=== PATIENT | male | born 1985 | race Caucasian/White ===

== ENCOUNTER 2019-11-10 12:24 | Inpatient (IN) | payer OTHER ==
[~2019-11-10] VITALS: Ht 172.7 cm; Wt 61.7 kg
[2019-11-10 12:30] VITALS: BP 143/97
--- NOTE | 2019-11-10 12:35 | NUR ---
Patient ambulated to bed 9. RN evaluating patient at bedside.
[2019-11-10] MEDS ORDERED: ASPIRIN 325 MG TAB PO ONE (12:40)
[2019-11-10] MEDS ORDERED: PROMETHAZINE 25 MG/ML VIAL IM ONE (13:00)
[2019-11-10] MEDS ORDERED: LORazepam 2 MG/ML VIAL IVP ONE (13:00)
[2019-11-10] MEDS ORDERED: NACL 0.9% 2,000 ML IV SCH (13:03)
[2019-11-10 13:11] LABS: BASOPHILS % (AUTO) 0.7 % (0.0-2.0); EOSINOPHILS # (AUTO) 0.1 K/uL (0-0.4); EOSINOPHILS % (AUTO) 0.8 % (0.0-4.0); HEMATOCRIT 47.6 % (36-52); HEMOGLOBIN 16.5 g/dL (12.0-18.0); LYMPHOCYTES # (AUTO) 1.2 K/uL (2.0-11.5); LYMPHOCYTES % (AUTO) 19.7 % (20.5-51.1); MEAN CORPUSCULAR HEMOGLOBIN 35 pg (27-31); MEAN CORPUSCULAR HGB CONC 35 g/dL (33-37); MEAN CORPUSCULAR VOLUME 100.7 fL (80-94); MONOCYTES # (AUTO) 0.4 K/uL (0.8-1.0); MONOCYTES % (AUTO) 6.9 % (1.7-9.3); NEUTROPHILS # (AUTO) 4.5 K/uL (1.8-7.7); NEUTROPHILS % (AUTO) 71.9 % (42.2-75.2); PLATELET COUNT (AUTO) 355 K/uL (140-450); RED BLOOD CELL COUNT(AUTO) 4.72 MIL/uL (4.20-6.10); RED CELL DISTRIBUTION WIDTH 13.3 % (11.6-13.7); WHITE BLOOD COUNT (AUTO) 6.2 K/uL (4.8-10.8)
--- NOTE | 2019-11-10 13:18 | NUR ---
Dr. Causey is evaluating the patient at bedside.
[2019-11-10 13:32] LABS: PROTHROMBIN TIME 9.9 secs (10.8-13.4)
[2019-11-10 13:44] LABS: ANION GAP 23.6 (8-16); CARBON DIOXIDE 23.1 mmol/L (21-32); POTASSIUM 3.7 mmol/L (3.5-5.1)
[2019-11-10] MEDS ORDERED: LIB5 PO (13:55)
--- NOTE | 2019-11-10 13:56 | NUR ---
CHECKED ON PT. AWAKE AND ALERT. ABLE TO COMMUNICTAE WELL. PROVIDED BLANKET , URINAL AT THE BEDISDE. INFORMED HIM TO USE THE URINAL , NEEDS URINE WORK UP. PT STATES NEEDS SOME TIME. NO ACUTE DISTRESS NOTED. RR EVEN AND NON-LABORED. WILL CONTINUE TO MONTIOR PT.
[2019-11-10 13:58] LABS: ALBUMIN 4.2 g/dL (3.4-5.0); TOTAL BILIRUBIN 1.1 mg/dL (0.0-1.0)
[2019-11-10 14:02] LABS: D-DIMER < 100 ng/ml (0-400)
[2019-11-10 14:29] LABS: C-REACTIVE PROTEIN QUANT < 0.2 mg/dL (0.0-0.9)
[2019-11-10 14:32] LABS: APPEARANCE,URINE CLEAR (CLEAR); BILIRUBIN,URINE 1+ (NEGATIVE); BLOOD, URINE NEGATIVE (NEGATIVE); LEUKOCYTE ESTERASE ,URINE NEGATIVE (NEGATIVE); NITRITE, URINE NEGATIVE (NEGATIVE); PH,URINE 6.5 (5.0-9.0); UGLUCOSE NEGATIVE (NEGATIVE)
[2019-11-10 14:34] LABS: BARBITURATE, URINE NEG. ng/ml (NEG <=200); BENZODIAZEPINE, URINE POS. ng/mL (NEG <=200); CANNABINOID, URINE NEG. ng/mL (NEG <=50); COCAINE, URINE NEG. ng/mL (NEG <=300); OPIATE, URINE NEG. ng/mL (NEG <=2000); PHENCYCLIDINE SCREEN,URINE NEG. ng/mL (NEG <=25)
[2019-11-10 14:35] LABS: COLOR,URINE AMBER (YELLOW)
--- NOTE | 2019-11-10 15:59 | NUR ---
CHECKED ON PT. RESTING COMFORTABLY IN HIS BED. VS STABLE. HR 113 DENIES ANY DISTRESS AT THSI TIME. BLOOD DRWN FROM THE PT. WILL CONTINUE TO MONITOR PT.
--- NOTE | 2019-11-10 16:34 | NUR ---
Dr. Rosales and Dr. Elise are evaluating the patient at bedside.
[2019-11-10] MEDS ORDERED: LORazepam 2 MG/ML VIAL IVP PRN (16:55)
--- NOTE | 2019-11-10 17:00 | NUR ---
WAITING FOR THE CALL FROM FLOOR. ROOM RUSLAN MADE READY .
--- NOTE | 2019-11-10 17:35 | NUR ---
Patient will be admitted to care of DR. ONEILL. Admited to TELE FLOOR . Will go to room 11A. Belongings list completed. Report to RN SOCO. PT STABLE AT TIME OF TRASNFER.
--- NOTE | 2019-11-10 17:35 | NUR ---
RECEIVED PATIENT FROM ER NURSE. PATIENT HAS A LEFT FA 20G, AAOX4, AMBULATORY. PATIENT IS FULL CODE, ALLERGIES TO MORPHINE. WILL REVIEW ORDERS AND CONTINUE WITH PLAN OF CARE.
[2019-11-10] MEDS ORDERED: KETOROLAC 30 MG/ML VIAL IVP PRN (17:40)
[2019-11-10] MEDS ORDERED: ONDANSETRON 4 MG/2 ML VIAL IVP PRN (17:40)
[2019-11-10] MEDS ORDERED: MULTIVITAMIN-12 10 ML, THIAMINE 100 MG, MAGNESIUM SULFATE 50% 2,000 MG, FOLIC ACID 1 MG... IV SCH ×5 (17:40)
[2019-11-10] MEDS ORDERED: LORazepam 1 MG TAB PO PRN (17:40)
--- NOTE | 2019-11-10 18:48 | NUR ---
OBTAINED MRSA SWAB. PATIENT IS SITTING UP IN BED EATING DINNER. NO COMPLAINTS AT THIS TIME. WILL ENDORSE TO MANAGER TALENT ACQUISITION FOR CONTINUITY OF CARE
--- NOTE | 2019-11-10 19:20 | NUR ---
RECEIVED BEDSIDE REPORT FROM DAY SHIFT NURSE, SOCO. NO SOB OR ANY RESPIRATORY DISTRESS NOTED. IV SITE ON LEFT FA 20G, PATENT, INTACT AND ASYMPTOMATIC. PT AAOX4, AMBULATORY. BOARD UPDATED, SKIN INTACT, WARM AND DRY TO TOUCH. ALL SAFETY MEASUREMENT ARE MET. BED IN LOW POSITION, CALL LIGHT WITHIN REACH.
[2019-11-10 20:00] VITALS: BP_SYST 137; BP_SYST 93; BP_DIAS 66; BP_DIAS 87
--- NOTE | 2019-11-10 20:10 | NUR ---
GIVEN BANANA BAG, PT C/O ANXIETY AND N/V. GIVEN ZOFRAN AND ATIVAN MD ORDERED. PT TOLERATED WELL. WILL CONTINUE TO MONITOR.
--- NOTE | 2019-11-10 22:00 | NUR ---
PT LYING IN BED. NO ACUTE DISTRESS NOTED.
[2019-11-10 22:55] LABS: BARBITURATE, URINE NEG. ng/ml (NEG <=200); BENZODIAZEPINE, URINE POS. ng/mL (NEG <=200); CANNABINOID, URINE NEG. ng/mL (NEG <=50); COCAINE, URINE NEG. ng/mL (NEG <=300); OPIATE, URINE NEG. ng/mL (NEG <=2000); PHENCYCLIDINE SCREEN,URINE NEG. ng/mL (NEG <=25)
[2019-11-11] VITALS: BP 134/90
--- NOTE | 2019-11-11 | NUR ---
VS CHECKED, WITHIN PT'S BASELINE. WILL CONTINUE TO MONITOR.
--- NOTE | 2019-11-11 02:45 | NUR ---
PT SLEEPING IN BED. NO ACUTE DISTRESS NOTED. WILL CONTINUE TO MONITOR.
[2019-11-11 04:00] VITALS: BP 144/102
--- NOTE | 2019-11-11 04:00 | NUR ---
BS CHECKED, WITHIN PT'S BASELINE. WILL CONTINUE TO MONITOR.
--- NOTE | 2019-11-11 06:16 | NUR ---
PT SLEEPING IN BED COMFORTABLE. NO ACUTE DISTRESS NOTED.
--- NOTE | 2019-11-11 07:04 | NUR ---
RECEIVED REPORT FROM NIGHT NURSE, PT IS ASLEEP IN BED, NO SIGNS OF DISTRESS. CALL LIGHT WITHIN REACH.
[2019-11-11 07:15] LABS: BASOPHILS % (AUTO) 0.8 % (0.0-2.0); EOSINOPHILS # (AUTO) 0.1 K/uL (0-0.4); EOSINOPHILS % (AUTO) 1.8 % (0.0-4.0); HEMATOCRIT 43.1 % (36-52); HEMOGLOBIN 15.1 g/dL (12.0-18.0); LYMPHOCYTES # (AUTO) 1.6 K/uL (2.0-11.5); LYMPHOCYTES % (AUTO) 27.9 % (20.5-51.1); MEAN CORPUSCULAR HEMOGLOBIN 36 pg (27-31); MEAN CORPUSCULAR HGB CONC 35 g/dL (33-37); MONOCYTES # (AUTO) 0.6 K/uL (0.8-1.0); MONOCYTES % (AUTO) 10.4 % (1.7-9.3); NEUTROPHILS # (AUTO) 3.4 K/uL (1.8-7.7); NEUTROPHILS % (AUTO) 59.1 % (42.2-75.2); PLATELET COUNT (AUTO) 300 K/uL (140-450); RED BLOOD CELL COUNT(AUTO) 4.23 MIL/uL (4.20-6.10); RED CELL DISTRIBUTION WIDTH 13.4 % (11.6-13.7); WHITE BLOOD COUNT (AUTO) 5.8 K/uL (4.8-10.8)
[2019-11-11 07:18] LABS: ANION GAP 12.3 (8-16); CARBON DIOXIDE 31.5 mmol/L (21-32); POTASSIUM 3.8 mmol/L (3.5-5.1)
[2019-11-11 07:46] LABS: ALBUMIN 3.9 g/dL (3.4-5.0); CREATININE 0.9 mg/dL (0.7-1.3); TOTAL BILIRUBIN 1.7 mg/dL (0.0-1.0)
[2019-11-11 08:00] VITALS: BP 127/87
--- NOTE | 2019-11-11 08:11 | NUR ---
PATIENT HAS BEEN SCREENED AND CATEGORIZED LOW NUTRITION RISK. PATIENT WILL BE SEEN WITHIN 7 DAYS OF ADMISSION. 11/17/[address]
--- NOTE | 2019-11-11 10:04 | NUR ---
PT ASLEEP IN BED, RESPIRATION ARE EVEN AND UNLABORED ON ROOM AIR. CALL LIGHT WITHIN REACH.
--- NOTE | 2019-11-11 10:38 | NUR ---
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: Basic Screen: Yes High Risk DC Screen Yes Name: KATHRINE Minaya Relationship: FRIEND Pre-Admission Living Arrangements: Lives with Other Other: LIVES WITH FAMILY Prior ADL Independent Current Home Health Name/Tel: N/A Current DME/02 Name/Tel: N/A Current Hospice Name/Tel: N/A Current Dialysis Name/Tel: N/A Healthcare Decision Maker: Patient Advance Directive No - REFUSED Information Taught: Advance Directive Community Resources Person Taught: Patient Teaching Tools: Verbal Factors Affecting Learning: None Participation Level: Refused Evaluation: Verbalizes Understanding Needs Additional Education: No Discipline: Case Mgt/Social Svcs Tentative Discharge Plan/Destination: No Needs Identified Will require assistance post discharge: No Referred to Veterinary Medicine Doctor: No Tentative Discharge Plan Summary: Patient is a 33-year-old male admitted for alcohol withdrawal. Patient has PMHX of hypertension and alcohol abuse. Patient was admitted from home. SW met patient at bedside to verify demographics. Patient stated that he has no history of mental health. Patient stated that he has a substance abuse history of daily alcohol use (12-18 beers daily). Patient denies using other substances. SW offered substance abuse resources and advanced directive eduaction, but patient refused. Patient's tentative discharge is to return home. No further needs identified. Signature: THEODORE Garcia Date: Nov 11, 2019 Time: 10:37
--- NOTE | 2019-11-11 11:07 | NUR ---
PCP Appointment: SAKSHI contacted Sangeetha from Dr. Bam Ortiz's office [phone]. SAKSHI arranged for hospital follow up appointment to be at 1500 on 11/18/2019 @ [address] [id number] SAKSHI left appointment slip in patient's chart to be given at discharge. No further needs identified.
[2019-11-11 12:00] VITALS: BP 137/90
--- NOTE | 2019-11-11 12:30 | NUR ---
PT EATING IN BED, NO SIGNS OF DISTRESS, CALL LIGHT WITHIN REACH.
[2019-11-11] MEDS ORDERED: INFLUENZA VACCINE QUAD 0.5 ML SYR IMVAC PRN (13:35)
--- NOTE | 2019-11-11 13:40 | NUR ---
DC PLANN[age] YRS OLD WAS ADMITTED FROM HOME WITH A DX OF ALCOHOL WITHDRAWAL . PT HAS A HX OF HTN . ADMINISTERED BANANA BAG IN ADDITION TO IVF, AND ATIVAN. SS EVALUATION FOR ALCOHOL ABUSE .DC PLAN TO GO HOME AND ENCOURAGE TO FOLLOW UP WITH REHAB FOR ALCOHOL WITHDRAWAL. CM TO FOLLOW.
--- NOTE | 2019-11-11 14:04 | NUR ---
DISCHARGED PT HOME, PT WALKED OUT TO THE PARKING LOT, STEADY GAIT, NO SIGNS OF DISTRESS.
== END 2019-11-11 14:04 | disposition home or self-care (01) | DRG 203 ==
LOC: MED 12:24 → MTU 16:39
PROVIDERS: ADMIT Internal Medicine; ATTEND Internal Medicine
DX: R07.89 Other chest pain (principal); E87.2 Acidosis; R00.0 Tachycardia, unspecified; F10.239 Alcohol dependence with withdrawal, unspecified; I10 Essential (primary) hypertension; Y90.1 Blood alcohol level of 20-39 mg/100 ml; Z88.5 Allergy status to narcotic agent
CPT/HCPCS: 36415; 36600; 71045; 80053; 80305; 81003; 82803; 83605; 83735; 83880; 84484; 85025; 85379; 85610; 85730; 86140; 87081; 93005; 96361; 96372; 96374; 99285; A9153; G0482; J2060; J2405; J2550; J3411; J3475; J3490; J7030; J7060; Q0092